=== PATIENT | male | born 1980 | race Caucasian/White ===

== ENCOUNTER 2019-05-17 13:18 | Emergency (ER) | payer BC, SELFPAY ==
[2019-05-17 13:30] VITALS: BP 160/84; PULSE 97; RESP 15; TEMP 36.9; O2SAT 97
--- NOTE | 2019-05-17 13:41 | W.ED.GENAD ---
Discharge Plan Disposition Patient Disposition: HOME Condition: Stable Discharge Details Chief Complaint: Cellulitis Clinical Impression: Cellulitis and abscess of face Primary Care Provider: None,None ED Provider: Viky Carranza Home Meds and New Rx's Prescriptions: New clindamycin HCl 150 mg capsule 450 mg PO TID 7 Days Qty: 63 RF: 0 mupirocin 2 % ointment 1 applic TP BID Qty: 15 RF: 0 Discharge Instructions Instructions: Abscess (ED) Additional Instructions: Clean area with soap and water. Apply topical antibiotic ointment twice daily. Take the antibiotics until finished. Return to the emergency department in the next 1 to 2 days for reevaluation. Follow-up with your primary care doctor once established for re-evaluation. Return immediately to the emergency department with any worsening or new concerning symptoms. Discharge Data Discharge Date/Time-TO BE ENTERED AT DEPARTURE: 05/17/19 16:40 Discharge Physician: Viky Carranza Medical Decision Making 39-year-old male presents with a possible infected cyst to his right facial cheek for the past 5 days. He has had this is for the past 5 years and states it is become more red and painful over the past few days. There is a 4 x 4 centimeter tender, indurated, fluctuant erythematous abscess on right facial cheek. He is hemodynamically stable. He appears nontoxic. The area was sterilized with Betadine and punctured with an 18-gauge needle with only serous drainage. The area was anesthetized with 6 cc of lidocaine without epinephrine. Due to concern for neurovascular structures, did not want to incised with a scalpel. The area was aspirated with an 18-gauge needle with only fatty serous drainage and no obvious purulent material. The area was expressed and mainly serous drainage removed. The area was irrigated with normal saline, topical antibiotic ointment and dressing was applied. He was given a dose of clindamycin here as well as prescription for clindamycin and mupirocin. He was advised to return here in 1 to 2 days for reevaluation. Medical Records Medical records reviewed: Yes I reviewed the patient's medical records. HPI General Mode of arrival: ambulatory. Date/Time Provider Initiated Documentation: 05/17/19 13:19. Limitations to Documentation: no limitations. Information obtained by: patient. HPI Narrative: Pt is a 39-year-old male who presents with right facial cheek redness, swelling and pain for the past 5 days. He states he has had a large cyst in this area for the past 5 years but has become progressively worse with pain, redness and swelling over the past 5 days. He has tried to pop the area but without relief. He denies any known fever, difficulty swallowing or breathing. He currently does not have a primary care doctor. Related Data Home Medications Medication Instructions Recorded Confirmed clindamycin HCl 450 mg PO TID 7 Days #63 cap 05/17/19 mupirocin 1 applic TP BID #15 gm 05/17/19 Previous Rx's Medication Instructions Recorded clindamycin HCl 450 mg PO TID 7 Days #63 cap 05/17/19 mupirocin 1 applic TP BID #15 gm 05/17/19 Allergies Allergy/AdvReac Type Severity Reaction Status Date / Time No Known Allergies Allergy Unverified 05/17/19 13:34 General Stated Complaint: Cellulitis CUAUHTEMOC: 3 Review of Systems Review of Systems ROS Unobtainable: All systems reviewed & are unremarkable except as noted in HPI and below Constitutional Constitutional: Reports as per HPI, Denies chills and Denies fever(s) Eyes Eyes: Denies blurry vision ENT Ears, Nose, Mouth, and Throat: Denies dizziness, Denies sore throat and Denies throat swelling Cardiovascular Cardiovascular: Denies chest pain and Denies dyspnea Respiratory Respiratory: Denies cough and Denies dyspnea Gastrointestinal Gastrointestinal: Denies abdominal pain, Denies diarrhea and Denies vomiting Genitourinary Genitourinary: Denies hematuria and Denies dysuria Musculoskeletal Musculoskeletal: Denies back pain and Denies numbness Integumentary/Breasts Skin/Breast: Reports lesions and Denies rash Neurologic Neurologic: Denies dizziness, Denies focal weakness and Denies numbness Allergic/Immunologic Allergic/Immunologic: Denies throat swelling [facility] Medical History No significant past medical history (Acute) Surgical History No significant past surgical history (Acute) Social History Substance use type: does not use Do you feel safe at home: Yes Do you feel safe in your relationship?: Yes Exam Const General: cooperative, healthy appearing and no acute distress [facility] Head: normal to inspection Ears: hearing grossly normal bilaterally and external ears normal General nose exam: external nose normal Face images: 1. 4x4cm indurated fluctuant tender erythematous mass on R facial cheek. There is a 2cm area of surrounding erythema. There is no drainage or bleeding. Mouth: oral mucosae normal Throat: posterior oropharynx normal Eyes General: appearance normal, both eyes and all related structures Neck Neck: normal visual inspection, full ROM, no lymphadenopathy, no meningeal signs, trachea midline, supple, no anterior neck swelling and No submandibular swelling Resp Effort & Inspection: normal respiratory effort and able to speak in complete sentences Cardio Rate: regular rate Skin General skin exam: no rashes or lesions noted Neuro General: alert, awake and oriented x3 Motor: muscle tone normal throughout Extrem General: normal to inspection and full ROM Psych Appearance: grossly normal Affect: normal affect Course Vital Signs Vital signs: Vital Signs Temperature 98.4 F 05/17/19 13:30 Pulse 97 H 05/17/19 13:30 Respiratory Rate 15 05/17/19 13:30 Blood Pressure 160/84 H 05/17/19 13:30 Pulse Oximetry 97 05/17/19 13:30 Temperature 98.4 F 05/17/19 13:30 Temperature Source Skin 05/17/19 13:30 Pulse 97 H 05/17/19 13:30 Respiratory Rate 15 05/17/19 13:30 Blood Pressure 160/84 H 05/17/19 13:30 Pulse Oximetry 97 05/17/19 13:30 Oxygen Delivery Method Room Air 05/17/19 13:30 Oxygen Flow Rate 0 05/17/19 13:30 Pain Level 2 05/17/19 13:30 Procedures Abscess I/D Site: Face Side (if applicable): Right Local Anesthetic: Lidocaine 1% Amount of anesthesia used (mL): 6 Technique: Needle Aspiration Amount of fluid expressed (mL): 2 Irrigation: Yes Packing used?: None
[2019-05-17] MEDS: Clindamycin 150 MG CAP 450 MG PO (16:32)
[2019-05-17 16:40] VITALS: BP 132/75; PULSE 75; RESP 16; TEMP 36.8; O2SAT 99
== END 2019-05-17 16:40 | disposition home or self-care (01) ==
PROVIDERS: Emergency Provider Physician Assistant
DX: L02.01 Cutaneous abscess of face (principal); L03.211 Cellulitis of face
CPT/HCPCS: 10160; 99283

== ENCOUNTER 2019-05-19 11:05 | Emergency (ER) | payer BC, SELFPAY ==
[2019-05-19 11:12] VITALS: BP 163/93; PULSE 88; RESP 14; TEMP 36.7; O2SAT 96
--- NOTE | 2019-05-19 11:19 | W.ED.GENAD ---
Discharge Plan Disposition Patient Disposition: HOME Condition: Stable Discharge Details Chief Complaint: Recheck Clinical Impression: Visit for wound check, Cellulitis and abscess of face Primary Care Provider: None,None ED Provider: Viky Carranza Home Meds and New Rx's Prescriptions: Continued clindamycin HCl 150 mg capsule 450 mg PO TID 7 Days Qty: 63 RF: 0 mupirocin 2 % ointment 1 applic TP BID Qty: 15 RF: 0 Discharge Instructions Instructions: Cellulitis (ED), Abscess (ED) Additional Instructions: Continue warm compresses multiple times daily for 20 minutes at a time. Take the antibiotics until finished. Alternate Tylenol and Motrin as needed and directed for pain. You will receive a call from care management regarding a follow-up appoint with her primary care doctor and the ear nose and throat doctor. Return immediately to the emergency department if you develop any worsening or concerning symptoms such as fever, difficulty swallowing, breathing or any worsening spreading of redness, swelling or pain. Discharge Data Discharge Date/Time-TO BE ENTERED AT DEPARTURE: 05/19/19 11:49 Discharge Physician: Viky Carranza Medical Decision Making 39-year-old male here for follow-up after seen here 2 days ago for right facial abscess status post needle aspiration for reevaluation. Patient states her symptoms are somewhat improved. He has been taking antibiotics as directed. He denies fever. The area is still erythematous and fluctuant but does overall appear decreased in size and the surrounding erythema has resolved. There is a small amount of fluctuance on the anterior aspect that appears resolving. Suspect the persistent edema is due to the infection plus also the multiple times with aspiration. Do not see any indication for additional I&D or aspiration. Patient is advised to take the antibiotics until finished. He was placed on care management list to arrange for a follow-up appointment with the primary care doctor and ENT for reevaluation and for possible facial cyst excision. He is advised to return here immediately if he has any worsening or new concerning symptoms. Medical Records Medical records reviewed: Yes I reviewed the patient's medical records. HPI General Mode of arrival: ambulatory. Date/Time Provider Initiated Documentation: 05/19/19 11:06. Limitations to Documentation: no limitations. Information obtained by: patient. HPI Narrative: Patient is a 39-year-old male who presents for recheck of abscess and cellulitis to his right face after seen here 2 days ago for same. Patient had needle aspiration with mainly serous drainage. He was started on clindamycin which he has been taking. He states he feels the symptoms are slightly improved. He denies any known fever. He states he has been able to eat and drink normally. Related Data Home Medications Medication Instructions Recorded Confirmed clindamycin HCl 450 mg PO TID 7 Days #63 cap 05/17/19 05/19/19 mupirocin 1 applic TP BID #15 gm 05/17/19 05/19/19 Previous Rx's Medication Instructions Recorded clindamycin HCl 450 mg PO TID 7 Days #63 cap 05/17/19 mupirocin 1 applic TP BID #15 gm 05/17/19 Allergies Allergy/AdvReac Type Severity Reaction Status Date / Time No Known Allergies Allergy Unverified 05/19/19 11:15 General Stated Complaint: Recheck CUAUHTEMOC: 4 Review of Systems Review of Systems ROS Unobtainable: All systems reviewed & are unremarkable except as noted in HPI and below Constitutional Constitutional: Reports as per HPI, Denies chills and Denies fever(s) Eyes Eyes: Denies blurry vision ENT Ears, Nose, Mouth, and Throat: Denies dizziness, Denies sore throat and Denies throat swelling Cardiovascular Cardiovascular: Denies chest pain and Denies dyspnea Respiratory Respiratory: Denies cough and Denies dyspnea Gastrointestinal Gastrointestinal: Denies abdominal pain, Denies diarrhea and Denies vomiting Genitourinary Genitourinary: Denies hematuria and Denies dysuria Musculoskeletal Musculoskeletal: Denies back pain and Denies numbness Integumentary/Breasts Skin/Breast: Denies lesions and Denies rash Neurologic Neurologic: Denies dizziness, Denies focal weakness and Denies numbness Allergic/Immunologic Allergic/Immunologic: Denies throat swelling [facility] Social History Smoking/Tobacco Use Status: Current every day Alcohol Intake: current Alcohol Intake frequency: 0-2 drinks per day Drug use: Rarely Substance use type: marijuana Do you feel safe at home: Yes Do you feel safe in your relationship?: Yes Exam Const General: cooperative, healthy appearing and no acute distress HENMT Head: normal to inspection Ears: hearing grossly normal bilaterally and external ears normal General nose exam: external nose normal Face images: 1. There is a large 4 x 3.5 cm area of indurated, fluctuant tender erythema on right facial cheek. The surrounding erythema noticed yesterday has now resolved. There appears to be an area of resolving fluctuance and edema on anterior aspect of abscess compared to yesterday. Mouth: oral mucosae normal Teeth and gingiva: dentition normal Throat: posterior oropharynx normal Eyes General: appearance normal, both eyes and all related structures Neck Neck: normal visual inspection, full ROM, no lymphadenopathy, no meningeal signs, trachea midline, supple, no anterior neck swelling and No submandibular swelling Resp Effort & Inspection: normal respiratory effort and able to speak in complete sentences Cardio Rate: regular rate Skin General skin exam: no rashes or lesions noted Neuro General: alert, awake and oriented x3 Motor: muscle tone normal throughout Extrem General: normal to inspection and full ROM Psych Appearance: grossly normal Affect: normal affect Course Vital Signs Vital signs: Vital Signs Temperature 98.1 F 05/19/19 11:12 Pulse 88 05/19/19 11:12 Respiratory Rate 14 05/19/19 11:12 Blood Pressure 163/93 H 05/19/19 11:12 Pulse Oximetry 96 05/19/19 11:12 Temperature 98.1 F 05/19/19 11:12 Temperature Source Skin 05/19/19 11:12 Pulse 88 05/19/19 11:12 Respiratory Rate 14 05/19/19 11:12 Respiratory Effort 05/19/19 11:16 Blood Pressure 163/93 H 05/19/19 11:12 Blood Pressure Position Sitting 05/19/19 11:12 Pulse Oximetry 96 05/19/19 11:12 Oxygen Delivery Method Room Air 05/19/19 11:12 Oxygen Flow Rate 0 05/19/19 11:12 Pain Level 2 05/19/19 11:12
== END 2019-05-19 11:49 | disposition home or self-care (01) ==
PROVIDERS: Emergency Provider Physician Assistant
DX: L02.01 Cutaneous abscess of face (principal); L03.211 Cellulitis of face
CPT/HCPCS: 99281

== ENCOUNTER 2019-05-23 18:42 | Outpatient (REF) | payer BC, SELFPAY | END 2019-05-23 19:02 | LOC: LBN 18:42 | PROVIDERS: Visit Provider Otolaryngology Otolaryngology/Facial Plastic Surgery | DX: L08.9 Local infection of the skin and subcutaneous tissue, unspecified (principal); L72.3 Sebaceous cyst | CPT/HCPCS: 87077; 87070; 87205 ==

== ENCOUNTER 2020-11-26 04:25 | Outpatient (CLI) | payer BC, SELFPAY ==
[2020-11-26 10:09] LABS: HCT 45.7 % (40.0-50.0); HGB 15.3 g/dL (13.5-17.5); MCH 28.7 pg (27.0-33.0); MCHC 33.5 % (32.0-36.0); MCV 85.7 fL (80-95); Platelet Count 342 10^3/uL (130-400); RBC 5.33 10^6/uL (4.36-5.78); RDW 12.7 % (11.8-14.1); RDW-SD 39.4 fL; WBC 7.59 10^3/uL (4.4-10.8)
[2020-11-26 11:04] LABS: ALT 32 U/L (16-63); AST 17 U/L (15-37); Albumin 4.6 g/dL (3.4-5.0); Alkaline Phosphatase 64 U/L (46-116); Anion Gap 10.2 mmol/L (3-11); BUN 11 mg/dL (7-18); Bilirubin, Total 0.6 mg/dL (0.2-1.0); CO2 27.8 mmol/L (21.0-32.0); CREATININE 0.8 mg/dL (0.70-1.30); Calcium 9.7 mg/dL (8.5-10.1); Calculated LDL 84 mg/dL (<100); Chloride 103 mmol/L (98-107); Cholesterol 174 mg/dL (<200); Glucose 102 mg/dL (74-106); HDL Cholesterol 69 mg/dL (40-60); Potassium 4.4 mmol/L (3.5-5.1); Sodium 141 mmol/L (136-145); Total Protein 7.7 g/dL (6.4-8.2); Triglyceride 107 mg/dL (<150)
== END 2020-11-26 04:26 | disposition home or self-care (01) ==
LOC: LBO 04:25
PROVIDERS: PCP Nurse Practitioner; Visit Provider Nurse Practitioner
DX: K40.90 Unilateral inguinal hernia, without obstruction or gangrene, not specified as recurrent (principal); Z13.220 Encounter for screening for lipoid disorders
CPT/HCPCS: 36415; 80053; 80061; 85027

== ENCOUNTER 2021-01-28 03:56 | Outpatient (CLI) | payer BC, SELFPAY ==
[2021-01-28 12:34] LABS: Source Nasal/Nares
[2021-01-28 21:02] LABS: COVID-19 PCR Negative (Negative)
== END 2021-01-28 03:57 | disposition home or self-care (01) ==
LOC: LBO 03:57
PROVIDERS: PCP Nurse Practitioner; Visit Provider Surgery
DX: Z20.822 Contact with and (suspected) exposure to COVID-19 (principal); Z01.818 Encounter for other preprocedural examination
CPT/HCPCS: 87635

== ENCOUNTER 2021-01-29 06:19 | Day surgery (SDC) | payer BC, SELFPAY ==
[2021-01-29] VITALS (9 sets, daily range): BP systolic 81–122; BP diastolic 40–73; PULSE 70–74; RESP 12–18; TEMP 35.9–36.6; O2SAT 96–100; BMI 28.5
[2021-01-29] MEDS: Lactated Ringers 1,000 ML 80 ML IV (06:41)
[2021-01-29] MEDS: Acetaminophen 500 MG TAB 1000 MG PO (06:41)
[2021-01-29] MEDS: Gabapentin 300 MG CAP PO (06:41)
--- NOTE | 2021-01-29 06:41 | W.ANESPRE ---
General Info Date of Service Date Performed: 01/29/21 Height: 5 ft 9 in Weight: 87.7 kg Body Mass Index (BMI): 28.5 Surgical Procedure: Operation Date: 01/29/21 07:40 Proposed Procedures Side Surgeon p Herniorraphy Inguinal Right Tika Chappell DO s Excision SEBACEOUS CYST X 3 ON HEAD Tika Chappell DO Meds Allergies and Home Medications Allergies Allergy/AdvReac Type Severity Reaction Status Date / Time No Known Allergies Allergy Verified 01/29/21 06:11 Home Medication Medication Instructions Recorded nicotine (polacrilex) 2 mg buccal 2 mg BUCCAL Q6H PRN 11/26/20 lozenge Current Visit Medications: Current Medications Generic Name Dose Route Start Last Admin Trade Name Freq PRN Reason Stop Dose Admin Acetaminophen 1,000 mg 01/29/21 06:00 Acetaminophen 500 Mg Tab PO 02/27/21 23:59 PREOP JUANITA Gabapentin 300 mg 01/29/21 06:00 01/29/21 06:41 Gabapentin 300 Mg Cap PO 02/27/21 23:59 300 mg PREOP JUANITA Administration Ringer's Solution 1,000 mls @ 80 mls/hr 01/29/21 06:00 IV 02/27/21 23:59 INFUSION JUANITA IV Miscellaneous Supplies 1 each 01/29/21 06:00 Iv Access IV 02/27/21 23:59 DIRECTED JUANITA Sodium Chloride 0 ml 01/29/21 06:00 Normal Saline Flush 10 Ml Syr IV 02/27/21 23:59 PRN PRN Sodium Chloride 0 ml 01/29/21 06:00 Normal Saline 10 Ml Vial IJ 02/27/21 23:59 DIRECTED PRN Sterile Water 0 ml 01/29/21 06:00 Water,Injection,Sterile 10 Ml Vial IJ 02/27/21 23:59 DIRECTED PRN PFSH Active Problems Active Problems: Problem Status Onset Code Local infection of the skin and subcutaneous tissue, unspecified L08.9 Sebaceous cyst L72.3 Encounter to establish care Z76.89 Right inguinal hernia K40.90 Screening for cholesterol level Z13.220 Tobacco abuse Z72.0 Right inguinal hernia K40.90 Medical History Medical History No significant past medical history Right inguinal hernia Tobacco abuse Surgical History Surgical History Hx of wisdom tooth extraction No significant past surgical history Tobacco Smoking/Tobacco Use Status: Former Tobacco Use Alcohol Alcohol Intake: former Substance Use Substance use: Rarely Substance use type: marijuana Vital Signs and Lab Results Vital Signs Most Recent Vital Signs in EMR: Most Recent Vital Signs Temp Pulse Resp BP Pulse Ox 36.2 C L 74 16 119/72 96 01/29/21 06:34 01/29/21 06:34 01/29/21 06:34 01/29/21 06:34 01/29/21 06:34 Lab Results Blood Type / Crossmatch: No Data to Display Complete Blood Count: No Data to Display Complete Metabolic Panel: No Data to Display Liver Function Panel: No Data to Display Coagulation Panel: No Data to Display Cardiac Panel: No Data to Display Arterial Blood Gas: No Data to Display Venous Blood Gas: No Data to Display Pancreas Panel: No Data to Display Thyroid Panel: No Data to Display Infectious Disease: Coronavirus (COVID-19)(PCR) Negative (Negative) 01/28/21 08:32 01/28/21 Coronavirus 2019 Source Nasal/nares 01/28/21 08:32 01/28/21 Blood Cultures: No Data to Display Toxicology Panel: No Data to Display Anesthesia Assessment and Plan Anesthesia History Personal History: No History of Anesthesia Complications Family History: No Family History of Anesthesia Complications Exercise Tolerance Exercise Tolerance: Metabolic Equivalents>4 Pertinent Negatives Pertinent Negatives: No Symptoms of GERD, No Major Cardiovascular Symptoms or Complaints, No Major Pulmonary Symptoms or Complaints (Snores quit smoking in sep ) and No History of CVA/TIA Cardiac & Pulmonary Exam Cardiac Exam: Normal S1/S2 Heart Sounds Pulmonary Exam: Clear Bilateral Breath Sounds Airway Exam Known Difficult Airway: No Mallampati Class: 2 Mouth Opening: Normal (> 3cm) Thyromental Distance: Greater than 3 cm Neck Range of Motion: Full ROM Neck Circumference: Normal Teeth Condition: Normal Dentition and Loose or Chipped ASA Classification ASA Score: ASA 2 Emergency Case?: No NPO Status NPO Status: NPO Clears >2 hours, Solids >8 hours Anesthesia Plan Resuscitation Status: Full Code Anesthesia Technique: General Anesthesia Airway Planned: LMA Monitors Used: Standard Monitors
[2021-01-29] MEDS: ceFAZolin 2 GM/50 ML BAG IVPB (07:32)
--- NOTE | 2021-01-29 07:59 | SKI_PTH ---
PATIENT: Carlton Milton LOC: [facility] U#:[id number] AGE/SX: 40/M ROOM: RE01/29/[address]: Tika Chappell : 1980 BED: DIS: 01/29/2021 SPEC #: [id number] RECD: 01/29/21 12:27 STATUS: RUY REPaulino #: [id number] CLAYTON: 01/29/21 07:[address]: Tika Chappell DEPT: Surgical Specimen RECD BY: Maki Fischer ENTERED: 01/29/21 12:28 SP TYPE: TOMI TRAVIS DR: Ruth Ann Floyd APRN Tissues: 1 - SKIN BIOPSY(SHAVE/PUNCH) Procedures: GROSS AND MICRO LEVEL 3 Comments: [id number]
--- NOTE | 2021-01-29 08:49 | W.ANESNERVE ---
Nerve Block Single Injection Procedure Date and Time Date Performed: 01/29/21 Procedure Start: 08:19 Location Where Procedure Performed Procedure Location: Operating Room Procedure Stop: 08:27 Reason Performed: Postoperative Analgesia Requesting Provider: Tika Chappell Requesting Provider (not listed above): Ta Timeout Performed Timeout Performed: Yes Monitoring Used ECG, Blood Pressure, SpO2, ETCO2 and See EMR for corresponding vital signs Sterility Sterility: Hand Hygiene, Surgical Cap, Surgical Mask, Sterile Gloves, Sterile Drape/Sheet, Eye Protection and Chlorhexidine Sedation Given During Procedure Sedation Given (Indicate Dose Given): No Sedation given Patient Mental Status Patient Mental Status: Performed under general anesthesia Nerve Block 1st Nerve Block: Laterality: Right Block Type: TAP Unilateral Needle / Catheter Used: 120mm SonoPlex II Local Anesthetic Bolus (Indicate Dose Given): Injected in 3-5ml increments after negative blood aspiration, Bupivacaine 0.5% Dose:: 10 cc and Exparel Dose:: 10 cc Additives (Indicate Dose Given): None Ultrasound: Sterile probe cover and gel used Ultrasound Image Saved?: Yes Nerve Stimulator: Not Used Paresthesia: None Procedure Tolerated: No Complications and Patient tolerated well Procedure Outcome: Successful Performed By: Pat Chung Supervised By: Estela Perry
[2021-01-29] MEDS: Bupivacaine LIPOSOME/PF 133 MG/10 ML VIAL IJ (09:43)
--- NOTE | 2021-01-29 09:54 | ROE_ITS ---
Date of service: 01/29/21 Time of Service: 09:54 Operative Note Operative Note DATE OF PROCEDURE: 01/29/21 PRE-OP DIAGNOSIS: Right indirect inguinal hernia x3 sebaceous cyst removal POST-OP DIAGNOSIS: same PROCEDURE: open right inguinal hernia w/ mesh. x3 sebacious cyst removal SURGEON: Tika Bean ANESTHESIA TYPE: Local By Surgeon, General LMA/ETT and Primary Nerve Block Refer to Anesthesia Record ESTIMATED BLOOD LOSS: 5 PATHOLOGY: other COMPLICATIONS: None Patient was transported to: PACU Patient's condition: stable Implants: see RN notes Procedure Description: Patient is brought to the operative room suite and placed in the supine position. Anesthesia was ministered per the department of anesthesia. Patient has x3 sebaceous cysts that he would like removed. These are attended to prior to beginning the hernia. The these were marked in preop prior to coming back to the OR. Timeout is performed the first 2 are on the left side of the scalp. The first lesion is 2 x 2 cm and is in the left upper occipital region. It is prepped and draped in the usual sterile fashion using a Betadine scrub solution. Infiltrated with 10 cc of 1% lidocaine plain. A 1.5cm incision is made over the apex of the cyst. A combination of blunt and sharp dissection is used to dissect the cyst out. Is 2 x 2 cm. Pressure is held. There is no bleeding noted. The incision is closed with 6 interrupted simple sutures of 3-0 nylon. Pressure is held. The second cyst is slightly inferior to this. It is 1 x 1 cm. The same procedure is used to remove this cyst. The incision is approximately .75cm and closed with 3-0 nylon. The third cyst is on his right cheek. He is repositioned, with all bony surfaces padded. It is prepped with Betadine. And is infiltrated with 1% lidocaine 5 cc. He had had a previous I&D in this area. The old scar is removed using a #15 blade. The in cision is 0.5 cm. The scar tissue was removed and the cyst is dissected out in its entirety. Incision is closed with 4 6 stitches of 4-0 nylon in simple interrupted fashion. Band-Aids are applied to all the incisions. There is no bleeding noted. The hernia is then attended to. INDICATIONS: The pt is here today for surgery regarding symptomatic right inguinal hernia that has failed outpatient conservative medical management and he is here today for repair. Informed consent was obtained, explaining risks and benefits of the procedure including but not limited to bleeding, infection, pneu monia, blood clots, chronic pain, chronic numbness, damage to testicle resulting in removal, recurrence of hernia, reaction to Mesh necessitating removal, and other unforetold complications, and complications of anesthesia-which were addressed by the LOSS PREVENTION MANAGER. The patient is marked in preOp prior to the procedure DESCRIPTION OF PROCEDURE: The pt is then brought to the operative room suite. Anesthesia was administered per the Department of Anesthesia. A nerve block was performed by anesthesia under US guidance. The patient was prepped and draped in the usual sterile fashion using ChloraPrep scrub solution. Pause for the cause was done. He did receive preop IV antibiotics, and 30 mL of .25% Marcaine w/ epinephrine was used for local anesthetization. A #12 blade was used to make an incision over the external ring. Electrocautery used to provide hemostasis and dissect down to the fascia. The fascia was pretty much obliterated and there was nothing to open. The cord is elevated. The nerve was not identified. There small is a cord lipomas-this is removed with electrocautery. Electro-cautery is used to provide hemostasis. A Sergio drain was placed around the cord to assist in mobilization. The cord was explored. There was is large hernia sac on the cord. There is no direct hernia pushing through the floor. The hernia sac is dissected off the cord using a combination of blunt dissection and electrocautery. Electrocautery is used to provide hemostasis. There are no contents within the hernia sac. The hernia sac is than inverted and returned to the abdominal cavity. A medium size plug is than inserted into the defect through the internal ring, and over sewn to tighten up the ring with 2-0 vicryl. Please see RN notes from Lot number of the [employer] mesh patch/plug. The cord structures are still able to freely move through the ring itself. The patch was then placed onto the floor, and using 2-0 Vicryl, sewn into the pubic tubercle and the shelving portions of the inguinal ligament, in the standard Lichenstein fashion. The tails of the mesh are brought around the cord, sewn together w/ 2-0 Vicryl, and tucked under the external oblique. The wound was copiously irrigat ed. There was no bleeding noted. The drain was removed. All structures are returned to normal anatomical position. The nerve is not sewn into the mesh, nor caught up in any sutures. The external oblique is re-approximated using 2-0 vicryl in a running fashion. Deep tissue was approximated with 3-0 Vicryl in a running fashion, and skin was approximated with 4-0 Monocryl in a running subcuticular fashion. Skin glue and sterile dressings are applied. The patient tolerated the procedure without complications to recovery in stable condition. TIKA BEAN, DO
--- NOTE | 2021-01-29 10:01 | W.PM.DSUDISC ---
Discharge Plan Disposition Patient Disposition: HOME Condition: Good Discharge Details Attending Provider: Tika Chappell Primary Care Provider: Ruth Ann Floyd Home Meds and New Rx's Prescriptions: New ibuprofen 600 mg tablet 600 mg PO Q6H PRNQty: 90 RF: 3 tramadol [Ultram] 50 mg tablet 50 mg PO Q6H PRNQty: 14 RF: 0 Continued nicotine (polacrilex) 2 mg lozenge 2 mg buccal Q6H PRNRF: 0 Discharge Instructions Additional Instructions: Dr. Chappell HERNIA REPAIR ? POSTOPERATIVE INSTRUCTIONS Patients who have this type of surgery can usually be expected to return to work within two weeks and have minimal amounts of discomfort. ? ACTIVITY: The day of surgery should be spent resting. However, you can be up for short periods of time, I.E., going to the bathroom or kitchen. Avoid lifting or straining. On the day following surgery, you can be up and about as desired. ? LIFTING: Restrict your lifting to no more than five (5) pounds for the first week following surgery. For the second week after surgery, don?t lift more than ten pounds. We will decide when you are done with restrictions and when you can return to work, at your follow-up appointment. No sexual activity for two weeks. ? DIET: There are no dietary restrictions following surgery. However, you may want to start with small amounts of liquids to avoid nausea the day of surgery. ? INCISION CARE: You will notice purple skin glue closing the incision. Do not peel this off- it will wear off on its own. After 24 hours you may shower. The dressing may be replaced for comfort, but is not necessary. An ice bag may be applied to the incision for 72 hours following surgery. ? SIGNS OF INFECTION: It is not unusual to have some black and blue discoloration of the skin around the incision, but also scrotum and penis. It will slowly disappear. If you have any increased redness, drainage, fever (above 100 degrees), please contact your doctor for an examination. ? DISCOMFORT: You may expect to have some mild discomfort at the incision sight. If severe pain develops you should contact your doctor for further instructions. ? URINATION: Patients who have surgery occasionally have problems urinating. If you experience problems and are not able to urinate within 6 hours following your surgery, please call your doctor immediately or go to your nearest Emergency Room for evaluation. ? DRIVING: NO driving for three (3) days after surgery, or if you are still taking narcotic pain medication. ? MEDICATIONS: Alternate Tylenol 1000mg by mouth every 8 hours and Ibuprofen 600mg every 6 hours. Make sure you take ibuprofen with food and not on an empty stomach. Take the Tylenol and ibuprofen continuously for the first 72hrs- not just when you have pain. Use the tramadol for breakthrough pain. Use ICE! Twenty minutes on, and then off, continuously for the first 72hours. If you are taking narcotic pain medication, follow the instructions on the label and do not drive. Pain medications can make you very constipated. Make sure you are moving your bowels daily. If not, take Miralax, milk of magnesia or magnesium citrate. *Anesthesia makes you very constipated. Take a dose of milk of magnesia the morning after surgery! ? REPORT: Unusual swelling, severe pain, unresolved nausea, signs of infection, or difficulty in urination to your surgeon. Follow up in clinic with Dr. Chappell in 1-2 weeks. [phone] Activity:: see above Remove Dressings/Wound Care:: 24 hours Shower/Bathe:: 24 hours Diet:: see above Discharge Orders Discharge Orders: Discharge Order (Routine); Ordered 01/29/21 Ordered By: Tika Chappell DS: Diagnosis Discharge Diagnosis (1) Right inguinal hernia: Status: Acute (2) Sebaceous cyst: Status: Acute
--- NOTE | 2021-01-29 10:55 | W.ANESPOSTOP ---
Postoperative Evaluation Date, Time and Location Date Performed: 01/29/21 Time Performed: 10:56 Patient Location: PACU Vital Signs Most Recent Imported Vital Signs: Most Recent Vital Signs Temp Pulse Resp BP Pulse Ox 36.6 C 73 15 107/69 100 01/29/21 10:50 01/29/21 10:50 01/29/21 10:50 01/29/21 10:50 01/29/21 10:50 Pain Score Most Recent Pain Score: Most Recent Pain Score Pain Level 1 01/29/21 10:50 Assessment Mental Status: Awake (Alert & Oriented to Patient Baseline) Airway and Respiratory Function: Patent airway with normal (patient baseline) respiratory exam Cardiovascular Function: Hemodynamically Stable Hydration Status: Adequately Hydrated Nausea & Vomiting: No Nausea or Vomiting Pain: Pain is tolerable/mild (<5/10) Peripheral Nerve Block: Regional nerve block not resolved at time of post operative discharge
== END 2021-01-29 12:30 | disposition home or self-care (01) ==
PROVIDERS: PCP Nurse Practitioner; Visit Provider Surgery
PROC: (CPT 49505; principal; 2021-01-29 07:30)
PROC: (CPT 49505; 2021-01-29 07:30)
DX: K40.90 Unilateral inguinal hernia, without obstruction or gangrene, not specified as recurrent (principal); L72.3 Sebaceous cyst
CPT/HCPCS: 49505; 11422; 11421; 11440; 76942; 88304; 88305; C1781; J0690; J1100; J1885; J2001; J2405; J2704

== ENCOUNTER 2024-03-09 18:35 | Emergency (ER) | payer OTHER, SELFPAY ==
[2024-03-09 18:43] VITALS: BP 158/87; PULSE 71; RESP 18; TEMP 36.6; O2SAT 98
[2024-03-09 19:58] VITALS: BP 138/83; PULSE 73; RESP 16; O2SAT 99
--- NOTE | 2024-03-09 21:23 | ED.GENADUL_ITS ---
Discharge Plan Disposition Patient Disposition: Home Condition: Stable Discharge Details Clinical Impression: Finger laceration Primary Care Provider: Ruth Ann Floyd ED Provider: Donna Ruiz Home Meds and New Rx's Prescriptions: No Action multivitamin Tablet 1 tab PO DAILY glucosamine HCl 500 mg tablet 500 mg PO DAILY Rx Instructions: administer with a meal cholecalciferol (vitamin D3) 25 mcg (1,000 unit) capsule 25 mcg PO DAILY magnesium 250 mg tablet 250 mg PO DAILY ascorbate calcium (vitamin C) 500 mg tablet 500 mg PO DAILY Discharge Instructions Instructions: Laceration Repair With Stitches ED Additional Instructions: Please return to the Emergency Department within 7 days for removal of your 4 stitches. Observe for any signs of infection as discussed and should this happen return to the emergency department immediately otherwise keep your wound clean and dry, change dressing twice a day and every time the wound gets wet and dirty. HPI General Date/Time Provider Initiated Documentation: 03/09/24 18:52 . HPI Narrative: The is a 43-year-old male with a history of inguinal hernia who is up-to-date his tetanus immunization who comes the emergency department for left finger laceration. Reports just prior to emergency room arrival while he was at work he was using a knife to cut up meat when he accidentally sliced his left middle and left index finger. Reports that he is right-hand dominant. Reports the wounds are quite deep. Denies numbness or tingling sensation. Denies injury elsewhere and states he was at his baseline health prior. Patient thinks that he is up-to-date his tetanus immunization. Related Data Home Medications ?Medication ?Instructions ?Recorded ?Confirmed glucosamine HCl 500 mg tablet 500 mg PO DAILY 02/13/21 03/09/24 multivitamin 1 tab PO DAILY 02/13/21 03/09/24 ascorbate calcium (vitamin C) 500 500 mg PO DAILY 12/05/21 03/09/24 mg tablet cholecalciferol (vitamin D3) 25 25 mcg PO DAILY 12/05/21 03/09/24 mcg (1,000 unit) capsule magnesium 250 mg tablet 250 mg PO DAILY 12/05/21 03/09/24 Allergies Allergy/AdvReac Type Severity Reaction Status Date / Time No Known Allergies Allergy Verified 03/09/24 18:46 General Stated Complaint: Laceration CUAUHTEMOC: 3 Review of Systems Narrative: Review of systems are negative except as mentioned. Exam Narrative Exam Narrative: The patient has bleeding lacerations on the left index and left middle finger on the dorsal aspect just at the base of the fingernails. He has no limitation range of motion testing throughout both of those fingers and intact station to light touch throughout. There is no foreign body visualized and no bony involvement is appreciated. Course Vital Signs Vital signs: Vital Signs Temperature 36.6 C 03/09/24 18:43 Pulse 71 03/09/24 18:43 Respiratory Rate 18 03/09/24 18:43 Blood Pressure 158/87 H 03/09/24 18:43 Pulse Oximetry 98 03/09/24 18:43 Temperature 36.6 C 03/09/24 18:43 Temperature Source Temporal Artery Scan 03/09/24 18:43 Pulse 73 03/09/24 19:58 Respiratory Rate 16 03/09/24 19:58 Respiratory Effort Normal, Non-Labored 03/09/24 20:34 Blood Pressure 138/83 03/09/24 19:58 Pulse Oximetry 99 03/09/24 19:58 Oxygen Delivery Method Room Air 03/09/24 19:58 Oxygen Flow Rate 0 03/09/24 19:58 Medical Decision Making I saw the patient for needs laceration repair and he gave me verbal consent to proceed. Location: Dorsal aspect of the left index and left middle fingers Length: 1 cm on the index finger and 1.25 cm on the middle finger Number of skin sutures: 1 on the index finger and 3 on the middle finger The area was prepped with saline x 3. The area was anesthetized using lidocaine without epinephrine, digital block. This achieved good anesthesia of the area. The wounds were thoroughly explored and there were no foreign bodies found. The wound penetrated down to subcutaneous tissue. There was no damage to deeper structures. The wound was closed using 5.0 nylon. This achieved good wound approximation. The wound was dressed with bacitracin and dry sterile dressing I asked the patient to keep the wound clean and dry and observe for any signs of infection including symptoms of flexor tenosynovitis which I have explained to him. I told him if this happens return to the emergency department immediately otherwise change the dressing twice a day and every time the wound gets wet or dirty. Quality:SDOH Health Related Social Needs: No Data to Display PFSH All Active Problems (Updated 03/09/24 @ 21:05 by Donna Ruiz DO) Finger laceration (Acute) Neoplasm of unspecified behavior of bone, soft tissue, and skin (Acute ~04/2023) 05/19/23 Derm - bx done R lateral thigh Bilateral carpal tunnel syndrome (Acute ~06/2022) 07/14/22 Orthopedics De Quervain's tenosynovitis (Acute ~01/2022) 01/29/22 Orthopedics Local infection of the skin and subcutaneous tissue, unspecified (Acute) Sebaceous cyst (Acute) Encounter to establish care (Acute) Right inguinal hernia (Acute) Screening for cholesterol level (Acute) Tobacco abuse (Acute) Right inguinal hernia (Acute) Medical History Bilateral hand numbness (~01/2022) 01/29/22 Orthopedics - f/u after nerve studies No significant past medical history Surgical History H/O removal of cyst (~01/29/21) History of right inguinal hernia repair (~01/29/21) Hx of wisdom tooth extraction No significant past surgical history Family History Father Cancer Acute amyloid Leukemia Hypertension Brother Depression Mother Depression Hypertension Maternal Grandfather Heart disease Paternal Grandfather Heart disease Maternal Aunt Hypertension Paternal Aunt Hypertension Maternal Uncle Hypertension Paternal Uncle Hypertension Paternal Grandmother Stroke Social History (Updated 04/07/23 @ 13:53 by Lillie Chavez LPN) Smoking/Tobacco Use Status: Former Tobacco Use Quit Date: 09/24/20 Tobacco: How many years used: 21 Quit status: has quit before Second Hand Exposure: No Smoking risk assessment performed?: Yes Alcohol Intake: former Year quit: 2019 Details: Quit 20 months ago, was drinking 6+ drinks a day Drug use: Occasionally Substance use type: marijuana Adopted: No Caregiver/Support person: No Foster care: No Household members: significant other and children Housing: house Number of Children: 1 number of grandchildren: 0 Communication Needs: None Education Level: high school Do you need help understanding health information?: Rarely 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 Pets and animals: Yes Pets and animals: cat(s), dog(s) and farm animals Sexually active: Yes Do you think of yourself as: straight/heterosexual Current gender identity: male What is your relationship status?: living with partner How often do you talk on the phone with friends or family?: decline to answer How often do you get together with friends or relatives?: decline to answer How often do you attend yarsanism or orthodoxy services?: decline to answer Panel score (0-1 are the most socially isolated patients): 1 What type of physical activity do you participate in: walking Duration: 30-45 minutes/day Frequency: 1-2 times per week Special cookie needs: No Seatbelt use: always Helmet use: Yes Helmet use: always Drive intox or ride w/intox special client bus driver: No Working smoke detector in home: Yes Do you feel safe at home: Yes Do you feel safe in your relationship?: Yes
== END 2024-03-09 21:12 | disposition home or self-care (01) ==
PROVIDERS: Emergency Provider Emergency Medicine; PCP Nurse Practitioner
DX: S61.213A Laceration without foreign body of left middle finger without damage to nail, initial encounter (principal); S61.211A Laceration without foreign body of left index finger without damage to nail, initial encounter; W26.0XXA Contact with knife, initial encounter
CPT/HCPCS: 12001; 64450

== ENCOUNTER 2025-06-28 03:10 | Outpatient (CLI) | payer OTHER, SELFPAY ==
[2025-06-28 09:06] LABS: Anion Gap 7.4 mmol/L (3-11); BUN 11 mg/dL (7-18); CO2 27.6 mmol/L (21.0-32.0); Calcium 9.1 mg/dL (8.5-10.1); Chloride 102 mmol/L (98-107); Cholesterol 191 mg/dL (<200); Glucose 111 mg/dL (74-106); HDL Cholesterol 65 mg/dL (>or=40); Potassium 4.2 mmol/L (3.5-5.1); Sodium 137 mmol/L (136-145)
== END 2025-06-28 03:11 | disposition home or self-care (01) ==
LOC: LBO 03:10
DX: Z00.00 Encounter for general adult medical examination without abnormal findings (principal); Z13.220 Encounter for screening for lipoid disorders
CPT/HCPCS: 36415; 80048; 80061